=== PATIENT | female | born 1940 | race Caucasian/White ===

== ENCOUNTER 2017-01-14 16:00 | Emergency (ER) | payer OTHER ==
[~2017-01-14] VITALS: Ht 160 cm; Wt 82.2 kg
[2017-01-14] MEDS ORDERED: VENTOLIN HFA18 GM IH (17:06)
[2017-01-14] MEDS ORDERED: ADVAIR 250/501 DISK IH (17:07)
[2017-01-14] MEDS ORDERED: PANTOPRAZOLE SO40 MG PO (17:07)
[2017-01-14] MEDS ORDERED: COQ10-VIT E 201 EACH PO (17:08)
[2017-01-14] MEDS ORDERED: PROBIOTIC1 EAC1 PO (17:08)
[2017-01-14] MEDS ORDERED: NORTRIPTYLINE H25 MG PO (17:09)
[2017-01-14] MEDS ORDERED: MAGNESIUM400 M1 PO (17:09)
[2017-01-14 17:46] VITALS: BP 151/75
== END 2017-01-14 17:47 | disposition home or self-care (01) ==
LOC: EME 16:00
DX: H11.31 Conjunctival hemorrhage, right eye (principal); J44.9 Chronic obstructive pulmonary disease, unspecified; K21.9 Gastro-esophageal reflux disease without esophagitis; Z96.651 Presence of right artificial knee joint
CPT/HCPCS: 99281; 99284